=== PATIENT | male | born 1935 | race Caucasian/White ===

== ENCOUNTER 2019-03-16 15:32 | Emergency (ER) | payer OTHER ==
[~2019-03-16] VITALS: Ht 177.8 cm; Wt 81.7 kg
[~2019-03-16 15:32] MED LIST: Amiodarone HCl200 MG PO; METO100ER PO; POTASSIUM CHLO20 MEQ PO; TORSE20 PO; XARELTO20 MG PO
== END 2019-03-16 16:56 | disposition home or self-care (01) ==
LOC: ER 15:32
DX: I48.91 Unspecified atrial fibrillation (principal); I10 Essential (primary) hypertension; Z79.899 Other long term (current) drug therapy
CPT/HCPCS: 93005; 93010; 96374; 99285-25

== ENCOUNTER 2020-06-20 10:36 | Inpatient (IN) | payer OTHER ==
[~2020-06-20] VITALS: Ht 175.3 cm; Wt 87.0 kg
[~2020-06-20 10:36] MED LIST changes: -METO100ER PO
[2020-06-20 11:22] LABS: BASOPHILS ABSOLUTE AUTO 0.07 K/mm3 (0.00-0.23); BASOPHILS PERCENT AUTO 1 % (0-2); EOSINOPHILS ABSOLUTE AUTO 0.21 K/mm3 (0.00-0.68); EOSINOPHILS PERCENT AUTO 3 % (0-6); Hematocrit 45.6 % (37.0-53.0); Hemoglobin 14.8 g/dL (13.5-17.5); IMMATURE GRAN ABSOLUTE AUTO 0.02 K/mm3 (0.00-0.10); IMMATURE GRAN PERCENT AUTO 0 % (0-1); LYMPHOCYTES ABSOLUTE AUTO 1.52 K/mm3 (0.84-5.20); LYMPHOCYTES PERCENT AUTO 23 % (21-46); MONOCYTES ABSOLUTE AUTO 0.59 K/mm3 (0.16-1.47); MONOCYTES PERCENT AUTO 9 % (4-13); Mean Corpuscular HGB 31.3 pg (26.0-34.0); Mean Corpuscular HGB Conc 32.5 g/dL (31.5-36.5); Mean Corpuscular Volume 96 fL (80-100); Mean Platelet Volume 9.8 fL (9.1-12.4); NEUTROPHILS ABSOLUTE AUTO 4.27 K/mm3 (1.96-9.15); NEUTROPHILS PERCENT AUTO 64 % (41-73); Platelet Count 216 K/mm3 (150-400); RDW Coefficient Variation 12.1 % (11.7-14.2); RDW Standard Deviation 43.2 fL (35.1-46.3); Red Blood Cell Count 4.73 M/mm3 (4.30-5.90); White Blood Cell Count 6.68 K/mm3 (4.00-11.30)
[2020-06-20 11:36] LABS: International Normalized Ratio 1.03
[2020-06-20 11:41] LABS: Alanine Aminotransfer (ALT/SGP 34 U/L (12-78); Albumin, Blood 3.8 g/dL (3.4-5.0); Albumin/Globulin Ratio 1.2 (0.8-1.8); Alk Phos 62 U/L (50-136); Anion Gap 4 mmol/L (6-16); Aspartate Aminotrans (AST/SGOT 16 U/L (12-37); Bilirubin, Total 0.3 mg/dL (0.1-1.0); Blood Urea Nitrogen 14 mg/dL (8-24); Bun/Creatinine Ratio 10.8 (12.0-20.0); CO2, Blood 27 mmol/L (21-32); Calcium, Blood 9.2 mg/dL (8.5-10.1); Chloride, Blood 111 mmol/L (98-108); Globulin, Blood 3.3 g/dL (2.2-4.0); Glomerular Filtration Rate 56 (60-); Glucose, Blood 100 mg/dL (70-99); Potassium, Blood 4.8 mmol/L (3.5-5.5); Sodium, Blood 142 mmol/L (136-145); Total Protein, Blood 7.1 g/dL (6.4-8.2); Troponin I <0.015 ng/mL (0.000-0.040)
[2020-06-20] MEDS ORDERED: XARELTO15 MG PO (12:42)
[2020-06-20] MEDS ORDERED: METO25ER PO (12:44)
[2020-06-20] MEDS ORDERED: TAMS.4ER PO (12:45)
[2020-06-21 04:00] LABS: Hematocrit 39.4 % (37.0-53.0); Hemoglobin 12.6 g/dL (13.5-17.5); Mean Corpuscular HGB 31.1 pg (26.0-34.0); Mean Corpuscular Volume 97 fL (80-100); Mean Platelet Volume 10.1 fL (9.1-12.4); Platelet Count 194 K/mm3 (150-400); RDW Coefficient Variation 12.3 % (11.7-14.2); RDW Standard Deviation 44.4 fL (35.1-46.3); Red Blood Cell Count 4.05 M/mm3 (4.30-5.90); White Blood Cell Count 7.05 K/mm3 (4.00-11.30)
[2020-06-21 04:20] LABS: Bun/Creatinine Ratio 15.9 (12.0-20.0); Calcium, Blood 8.9 mg/dL (8.5-10.1); Creatinine, Blood 1.38 mg/dL (0.60-1.20); Potassium, Blood 4.4 mmol/L (3.5-5.5)
== END 2020-06-21 19:24 | disposition home or self-care (01) | DRG 291 ==
LOC: ER 10:36 → PCU 10:37
PROVIDERS: Nurse Practitioner Acute Care; Physician Assistant; ADMIT Internal Medicine
DX: I13.0 Hypertensive heart and chronic kidney disease with heart failure and stage 1 through stage 4 chronic kidney disease, or unspecified chronic kidney disease (principal); I50.33 Acute on chronic diastolic (congestive) heart failure; I48.20 Chronic atrial fibrillation, unspecified; N18.30 Chronic kidney disease, stage 3 unspecified; N40.0 Benign prostatic hyperplasia without lower urinary tract symptoms
CPT/HCPCS: 36415; 71046; 80048; 80053; 83735; 83880; 84100; 84443; 84484; 85025; 85027; 85610; 93005; 93010; 96365; 96375; 96376; 99291-25; G0378; J1940

== ENCOUNTER 2020-08-07 06:13 | Day surgery (SDC) | payer OTHER ==
[~2020-08-07] VITALS: Ht 175.3 cm; Wt 84.0 kg
[~2020-08-07 06:13] MED LIST changes: +METO25ER PO; +TAMS.4ER PO; +XARELTO15 MG PO
[2020-08-07] MEDS ORDERED: Amiodarone HCl200 MG PO (07:09)
[2020-08-07] MEDS ORDERED: TORSE20 PO (07:09)
[2020-08-07 07:12] LABS: BASOPHILS ABSOLUTE AUTO 0.03 K/mm3 (0.00-0.23); BASOPHILS PERCENT AUTO 1 % (0-2); EOSINOPHILS ABSOLUTE AUTO 0.11 K/mm3 (0.00-0.68); EOSINOPHILS PERCENT AUTO 2 % (0-6); Hematocrit 42.2 % (37.0-53.0); Hemoglobin 13.5 g/dL (13.5-17.5); IMMATURE GRAN ABSOLUTE AUTO 0.03 K/mm3 (0.00-0.10); IMMATURE GRAN PERCENT AUTO 1 % (0-1); LYMPHOCYTES ABSOLUTE AUTO 1.25 K/mm3 (0.84-5.20); LYMPHOCYTES PERCENT AUTO 21 % (21-46); MONOCYTES ABSOLUTE AUTO 0.71 K/mm3 (0.16-1.47); MONOCYTES PERCENT AUTO 12 % (4-13); Mean Corpuscular HGB 30.8 pg (26.0-34.0); Mean Corpuscular Volume 96 fL (80-100); Mean Platelet Volume 9.4 fL (9.1-12.4); NEUTROPHILS ABSOLUTE AUTO 3.93 K/mm3 (1.96-9.15); NEUTROPHILS PERCENT AUTO 65 % (41-73); Platelet Count 199 K/mm3 (150-400); RDW Coefficient Variation 12.4 % (11.7-14.2); RDW Standard Deviation 44.4 fL (35.1-46.3); Red Blood Cell Count 4.39 M/mm3 (4.30-5.90); White Blood Cell Count 6.06 K/mm3 (4.00-11.30)
[2020-08-07 07:25] LABS: International Normalized Ratio 1.13
[2020-08-07 07:27] LABS: Bun/Creatinine Ratio 11.1 (12.0-20.0); Calcium, Blood 8.8 mg/dL (8.5-10.1); Creatinine, Blood 1.44 mg/dL (0.60-1.20); Potassium, Blood 3.9 mmol/L (3.5-5.5)
--- NOTE | 2020-08-07 07:52 | NUR ---
PT AWAKE AND VERBALIZING WELL. SB [id number].
== END 2020-08-07 22:45 | disposition home or self-care (01) ==
LOC: MHTC 06:13
PROVIDERS: Internal Medicine Cardiovascular Disease
PROC: 5A2204Z Restoration of Cardiac Rhythm, Single (ICD-10-PCS; principal; 2020-08-07)
DX: I48.0 Paroxysmal atrial fibrillation (principal); I10 Essential (primary) hypertension; J44.9 Chronic obstructive pulmonary disease, unspecified; I35.0 Nonrheumatic aortic (valve) stenosis; Z79.01 Long term (current) use of anticoagulants; Z79.899 Other long term (current) drug therapy
CPT/HCPCS: 80048; 85025; 85610; 92960; 93005; 93010; J2704; J7030

== ENCOUNTER 2020-08-28 09:37 | Day surgery (SDC) | payer OTHER ==
[~2020-08-28] VITALS: Ht 177.8 cm; Wt 76.3 kg
--- NOTE | 2020-08-28 12:03 | NUR ---
PT VERBALIZED UNDERSTANDING OF WRITTEN AND VERBAL D/C INST. IV REMOVED. PT TAKEN OUT OF THE [facility]ENTER VIA W/C.
== END 2020-08-28 23:42 | disposition home or self-care (01) ==
LOC: MHTC 09:37
DX: I48.0 Paroxysmal atrial fibrillation (principal); I45.2 Bifascicular block; I13.10 Hypertensive heart and chronic kidney disease without heart failure, with stage 1 through stage 4 chronic kidney disease, or unspecified chronic kidney disease; N18.9 Chronic kidney disease, unspecified; Z79.01 Long term (current) use of anticoagulants; Z79.899 Other long term (current) drug therapy
CPT/HCPCS: 92960; 93005; 93010; J2001; J2704; J7030

== ENCOUNTER 2020-10-16 06:40 | Day surgery (SDC) | payer OTHER ==
[~2020-10-16] VITALS: Ht 177.8 cm; Wt 82.0 kg
--- NOTE | 2020-10-16 10:55 | NUR ---
Patient arrived to [facility] recovery room. alert and oriented. right radial site soft and nontender. TR band in place.
--- NOTE | 2020-10-16 11:47 | NUR ---
pt ambulates to and from restroom without diff. NADN> VSS. R Radial tr band remains clear.
--- NOTE | 2020-10-16 12:40 | NUR ---
2mL AIR RELEASED FROM TR BAND WITH NO BLEEDING, OOZING OR HEMATOMA NOTED.
--- NOTE | 2020-10-16 12:50 | NUR ---
TOTAL OF 5mL AIR RELEASED FROM TR BAND. NO BLEEDING, OOZING OR HEMATOMA NOTED. PT SITTING WATCHING TV ON PHONE. VSS. WILL CONTINUE TO MONITOR.
--- NOTE | 2020-10-16 13:00 | NUR ---
ALL AIR RELEASED FROM TR BAND. NO BLEEDING, OOZING OR HEAMTOMA NOTED. PT DENIES ANY NEEDS AT THIS TIME. VSS. WILL CONTINUE TO MONITOR.
--- NOTE | 2020-10-16 14:10 | NUR ---
PT AMBULATED TO RESTROOM AND DRESSED SELF WITH NO COMPLICATIONS. TR BAND REMOVED, SITE CLEANED AND CLOTH DOT DRESSING APPLIED. IV DCD WITH CATH INTACT. PT DENIES ANY PAIN. WHITE BOARD PLACED BACK ON R ARM FOR SUPPORT. PLACED PTS RIGHT ARM IN SLING PRIOR TO DC. PT STATES HIS UNDERSTAND OF DC INSTRUCTIONS AND SITE CARE AND DENIES ANY QUESTIONS OR CONCERNS UPON DC. PT TAKEN TO EXIT VIA WHEELCHAIR BY OTHER RN WHERE WAS WAITING WITH VEHICLE.
--- NOTE | 2020-10-16 15:35 | NUR ---
PATIENT VERBALIZED UNDERSTANDING OF DISCHARGE INSTRUCTIONS AND PRECAUTIONS. RIGHT RADIAL SITE SOFT AND NONTENDER. CLOTH DOT DRESSING APPLIED AND WRIST BOARD IN PLACE. PATIENT DISCHARGED HOME TRANSFERRED TO WAITING CAR VIA WHEELCHAIR.
== END 2020-10-16 14:00 | disposition home or self-care (01) ==
LOC: MHTC 06:40
DX: I35.0 Nonrheumatic aortic (valve) stenosis (principal); I48.0 Paroxysmal atrial fibrillation; I45.2 Bifascicular block; I13.0 Hypertensive heart and chronic kidney disease with heart failure and stage 1 through stage 4 chronic kidney disease, or unspecified chronic kidney disease; I50.30 Unspecified diastolic (congestive) heart failure; N18.9 Chronic kidney disease, unspecified; Z79.01 Long term (current) use of anticoagulants
CPT/HCPCS: 93454; 99152; 99153; C1769; C1894; J1644; J2250; J3010; J7030; J7050; Q9967